=== PATIENT | male | born 1945 | race Caucasian/White ===

== ENCOUNTER 2018-09-30 07:53 | Outpatient (CLI) | payer MEDICARE, BC ==
[2018-09-30] MEDS ORDERED: Iopamidol 370 76% 100 ML VIAL ONE (09:46)
--- NOTE | 2018-09-30 12:02 | CT ---
CT OF THE ABDOMEN AND PELVIS WITH AND WITHOUT IV CONTRAST: INDICATION: Diarrhea for weeks with 8 to 9 pound weight loss since June. History of rectal cancer and umbili gianna hernia repair. TECHNIQUE: Multiple CT images were obtained of the abdomen and pelvis with and without IV contrast utilizing ent erography protocol. FINDINGS: No renal or ureteral calculus is evident. There are moderate calcifications involving the abdominope lvic vasculature. There is a 2.5 cm cyst involving the right mid kidney. No additional focal renal lesion is evident. The adrenal glands, pancreas, and spleen appear within normal limits. No focal hepatic lesion is evident. No enlarged lymph nodes or free fluid is evident. There is scattered diverticula involving the colon without evidence of active diverticulitis. The small bowel demonstrates normal wall thickness and caliber. No overt inflammatory change is pres ent. No irregular mass is evident. There is a normal appendix in the right lower quadrant. No free fluid is evident. There is postsurgical change of a left inguinal hernia repair. There is scattered degenerative and osteoarthritic change. IMPRESSION: 1. No suspicious small bowel mass, stricture, or obstruction demonstrated. No overt wall thickening or inflammatory change is grossly evident. 2. Normal appendix. 3. Colonic diverticulosis without evidence of active diverticulitis. 4. Right renal cyst. POS: [facility]
== END 2018-09-30 07:54 | disposition home or self-care (01) ==
LOC: CT 07:53
PROVIDERS: ATTEND Internal Medicine Gastroenterology
DX: K52.9 Noninfective gastroenteritis and colitis, unspecified (principal); R10.33 Periumbilical pain; R93.3 Abnormal findings on diagnostic imaging of other parts of digestive tract; K57.30 Diverticulosis of large intestine without perforation or abscess without bleeding; N28.1 Cyst of kidney, acquired; Z80.0 Family history of malignant neoplasm of digestive organs
CPT/HCPCS: 74178; 82565; Q9967

== ENCOUNTER 2020-01-31 15:01 | Outpatient (CLI) | payer MEDICARE, BC ==
--- NOTE | 2020-01-31 15:30 | RAD ---
EXAM: XR Knee Rt 3 View PROVIDED CLINICAL HISTORY: Pain FINDINGS: There is no evidence for fracture or other acute osseous abnormality. Alignment appears anatomic. Marie nt spaces appear preserved. Vascular calcifications are seen. IMPRESSION: No evidence for an acute osseous abnormality or significant arthropathy.
--- NOTE | 2020-01-31 15:30 | RAD ---
EXAM: XR Knee Lt 3 View PROVIDED CLINICAL HISTORY: Pain FINDINGS: There is no evidence for fracture or other acute osseous abnormality. Alignment appears anatomic. Marie nt spaces appear preserved. IMPRESSION: No evidence for an acute osseous abnormality or significant arthropathy.
== END 2020-01-31 15:02 | disposition home or self-care (01) ==
LOC: BICRAD 15:01
PROVIDERS: ATTEND Family Medicine
DX: M25.561 Pain in right knee (principal); M25.562 Pain in left knee